=== PATIENT | female | born 1985 | race Caucasian/White ===

== ENCOUNTER 2016-09-24 10:32 | Emergency (ER) | payer OTHER ==
[~2016-09-24] VITALS: Ht 154.9 cm; Wt 65.8 kg
[2016-09-24 10:59] VITALS: BP 109/76
--- NOTE | 2016-09-24 11:52 | NUR ---
Patient ambulated to bed 3 with family. RN evaluating patient at bedside.
--- NOTE | 2016-09-24 12:00 | NUR ---
PT PRESENTS TO ER FOR EVALUATION OF LACERATION SUSTAINED THIS AM FROM CAR METAL WHILE WALKING. PT DENIES ANY OTHER MEDICAL HX. DENIES N/V/D; SKIN IS PINK/WARM/DRY; AAOX4 WITH EVEN AND STEADY GAIT; LUNGS CLEAR BL; HR EVEN AND REGULAR; PT DENIES ANY FEVER, CP, SOB, OR COUGH AT THIS TIME; PATIENT STATES PAIN OF 5/10 AT THIS TIME; VSS; PATIENT POSITIONED FOR COMFORT; HOB ELEVATED; BEDRAILS UP X2; BED DOWN. ER MD MADE AWARE OF PT STATUS.
--- NOTE | 2016-09-24 12:11 | NUR ---
Dr. Duran evaluating patient at bedside.
[2016-09-24] MEDS ORDERED: LIDOCAINE 1% 500 MG/50 ML VIAL INJ ONE (12:15)
[2016-09-24] MEDS ORDERED: BACITRACIN OINT 500 UNITS/GM PKT TP ONE (12:26)
[2016-09-24 12:54] VITALS: BP 118/64
== END 2016-09-24 12:54 | disposition home or self-care (01) ==
LOC: MED 10:32
DX: S51.811A Laceration without foreign body of right forearm, initial encounter (principal); W45.8XXA Other foreign body or object entering through skin, initial encounter; Y93.89 Activity, other specified; Y92.89 Other specified places as the place of occurrence of the external cause; Y99.8 Other external cause status
CPT/HCPCS: 12002; 90471; 90715; 99283; J2001